=== PATIENT | male | born 1975 | race Caucasian/White ===

== ENCOUNTER 2017-09-10 16:07 | Emergency (ER) | payer MEDICAID, OTHER ==
[~2017-09-10] VITALS: Ht 162.6 cm; Wt 86.2 kg
[~2017-09-10 16:07] MED LIST: IBUPROFEN PO
[2017-09-10] MEDS ORDERED: SULFAMETH/TRIMETH 800/160 MG TABLET PO ONE (17:00)
[2017-09-10] MEDS ORDERED: MORPHINE SULFATE 4 MG/1 ML DISP.SYRIN IM ONE (17:00)
[2017-09-10] MEDS ORDERED: CEPHALEXIN MONOHYDRATE 500 MG CAPSULE PO ONE (17:00)
[2017-09-10] MEDS ORDERED: ONDANSETRON 4 MG/2 ML VIAL IM ONE (17:00)
--- NOTE | 2017-09-10 17:09 | NUR ---
Patient discharged to home in stable conditon. Written and verbal after care instructions given. Patient verbalizes understanding of instructions.
[2017-09-10 17:10] VITALS: BP 129/89
--- NOTE | 2017-09-10 17:10 | NUR ---
Pt left ER W/ steady gait accompained by family.
[2017-09-10] MEDS ORDERED: CEPHALEXIN MONOHYDRATE 500 MG CAPSULE ONE (17:11)
[2017-09-10] MEDS ORDERED: ONDANSETRON 4 MG/2 ML VIAL ONE (17:11)
[2017-09-10] MEDS ORDERED: MORPHINE SULFATE 4 MG/1 ML DISP.SYRIN ONE (17:11)
[2017-09-10] MEDS ORDERED: SULFAMETH/TRIMETH 800/160 MG TABLET ONE (17:11)
== END 2017-09-10 17:11 | disposition home or self-care (01) ==
LOC: ER 16:10
DX: L03.011 Cellulitis of right finger (principal); M48.00 Spinal stenosis, site unspecified; Z87.891 Personal history of nicotine dependence; Z86.73 Personal history of transient ischemic attack (TIA), and cerebral infarction without residual deficits
CPT/HCPCS: 96372 ×2; 99284; A4663; J2270; J2405

== ENCOUNTER 2017-09-28 21:06 | Emergency (ER) | payer OTHER ==
[~2017-09-28] VITALS: Ht 162.6 cm; Wt 86.2 kg
--- NOTE | 2017-09-28 21:11 | NUR ---
PT C/O REINJURY RT INDEX FINGER
--- NOTE | 2017-09-28 21:25 | NUR ---
DR FELIX TO EXAM
--- NOTE | 2017-09-28 21:51 | NUR ---
PT DISCHGED WITH FAMILY RX AND AFTERCARE INSTRUCTIONS REVIEWED
[2017-09-28 21:52] VITALS: BP 142/88
== END 2017-09-28 21:54 | disposition home or self-care (01) ==
LOC: ER 21:07
DX: S60.021A Contusion of right index finger without damage to nail, initial encounter (principal); G89.29 Other chronic pain; L98.9 Disorder of the skin and subcutaneous tissue, unspecified; M48.00 Spinal stenosis, site unspecified; Z86.73 Personal history of transient ischemic attack (TIA), and cerebral infarction without residual deficits; F17.200 Nicotine dependence, unspecified, uncomplicated; X58.XXXA Exposure to other specified factors, initial encounter; Y93.89 Activity, other specified; Y92.89 Other specified places as the place of occurrence of the external cause; Y99.8 Other external cause status
CPT/HCPCS: 29130; 99283; A4663

== ENCOUNTER 2018-01-20 18:11 | Emergency (ER) | payer SELFPAY ==
[~2018-01-20] VITALS: Ht 165.1 cm; Wt 88.5 kg
--- NOTE | 2018-01-20 19:06 | NUR ---
sbar report to nazanin arreola
--- NOTE | 2018-01-20 20:00 | NUR ---
PT D/C HOME WITH RX AND ACI GIVEN.PT VERBALIZED UNDERSTANDING.PT STATES DRIVING SO NO MEDS NOW
== END 2018-01-20 20:02 | disposition home or self-care (01) ==
LOC: ER 18:13
DX: G89.29 Other chronic pain (principal); M54.5 Low back pain; F17.210 Nicotine dependence, cigarettes, uncomplicated; Z86.73 Personal history of transient ischemic attack (TIA), and cerebral infarction without residual deficits; Z79.1 Long term (current) use of non-steroidal anti-inflammatories (NSAID)
CPT/HCPCS: A4663

== ENCOUNTER 2018-10-29 14:17 | Emergency (ER) | payer OTHER ==
[~2018-10-29] VITALS: Ht 167.6 cm; Wt 90.7 kg
[2018-10-29] MEDS ORDERED: HYDROCODONE/APAP 10-325 MG TABLET ONE (15:02)
[2018-10-29] MEDS ORDERED: KETOROLAC TROMETHAMINE 30 MG INJ ONE (15:02)
[2018-10-29] MEDS: HYDROCODONE/APAP 10-325 MG TABLET PO ONE (15:04)
[2018-10-29] MEDS: KETOROLAC TROMETHAMINE 30 MG INJ IM ONE (15:04)
[2018-10-29 15:19] LABS: BASOPHILS # (AUTO) 0.1 K/uL (0.0-8.0); BASOPHILS % (AUTO) 0.9 % (0.0-2.0); EOSINOPHILS # (AUTO) 0.2 K/uL (0.0-0.7); EOSINOPHILS % (AUTO) 2.5 % (0.0-7.0); HEMATOCRIT 42.5 % (36.7-47.1); HEMOGLOBIN 14.6 g/dL (12.5-16.3); LYMPHOCYTES # (AUTO) 2.2 K/uL (20.0-40.0); LYMPHOCYTES % (AUTO) 29.6 % (20.5-51.5); MEAN CORPUSCULAR HEMOGLOBIN 32.6 uug (23.8-33.4); MEAN CORPUSCULAR HGB CONC 34 g/dL (32.5-36.3); MONOCYTES # (AUTO) 0.8 K/uL (2.0-10.0); MONOCYTES % (AUTO) 10.3 % (0.0-11.0); NEUTROPHILS # (AUTO) 4.1 K/uL (1.8-8.9); NEUTROPHILS % (AUTO) 56.7 % (38.5-71.5); PLATELET COUNT (AUTO) 331 K/uL (152-348); RED BLOOD CELL COUNT(AUTO) 4.47 MIL/uL (4.06-5.63); WHITE BLOOD COUNT (AUTO) 7.3 K/uL (3.6-10.2)
[2018-10-29 15:28] LABS: POTASSIUM 4.3 mmol/L (3.5-5.1)
[2018-10-29 15:33] LABS: BILIRUBIN,DIRECT 0.1 mg/dL (0.0-0.2); BILIRUBIN,TOTAL 0.3 mg/dL (0.2-1.0)
[2018-10-29] MEDS ORDERED: IV NORMAL SALINE 250 ML IV ONE (17:21)
[2018-10-29] MEDS ORDERED: IOHEXOL 350 100 ML INFUS..BTL ONE (17:21)
[2018-10-29] MEDS ORDERED: SWABABLE VALVE TRANSFER SET EA MC ONE (17:21)
--- NOTE | 2018-10-29 18:44 | NUR ---
MSE COMPLETED, IV D/C'D INTACT, PT D/C'D HOME, ACI/RX X2 GIVEN. PT AMBULATED W/O DIFF, TOOK ALL BELONGINGS.
[2018-10-29 18:46] VITALS: BP 175/105
== END 2018-10-29 18:47 | disposition home or self-care (01) ==
LOC: ER 14:19
DX: R07.81 Pleurodynia (principal); R91.1 Solitary pulmonary nodule; I73.1 Thromboangiitis obliterans [Buerger's disease]; F17.200 Nicotine dependence, unspecified, uncomplicated; G89.29 Other chronic pain; M54.9 Dorsalgia, unspecified; Z79.1 Long term (current) use of non-steroidal anti-inflammatories (NSAID)
CPT/HCPCS: 36415; 71101; 71275; 80048; 80076; 84484; 85025; 85730; 93005; 96372; 99284; J1885; Q9967; 70030-TC; A4663; J7050

== ENCOUNTER 2019-12-09 14:07 | Emergency (ER) | payer OTHER ==
[~2019-12-09] VITALS: Ht 167.6 cm; Wt 90.7 kg
--- NOTE | 2019-12-09 14:19 | NUR ---
Dr Owens at the bedside for MSE.
[2019-12-09] MEDS ORDERED: MORPHINE SULFATE 2 MG/1 ML DISP.SYRIN IV ONE (14:30)
[2019-12-09 14:40] LABS: BASOPHILS % (AUTO) 0.6 % (0.0-2.0); EOSINOPHILS % (AUTO) 0.3 % (0.0-7.0); HEMATOCRIT 36.1 % (36.7-47.1); HEMOGLOBIN 12.1 g/dL (12.5-16.3); LYMPHOCYTES # (AUTO) 0.5 K/uL (20.0-40.0); LYMPHOCYTES % (AUTO) 8.8 % (20.5-51.5); MEAN CORPUSCULAR HEMOGLOBIN 31.5 uug (23.8-33.4); MEAN CORPUSCULAR HGB CONC 34 g/dL (32.5-36.3); MEAN CORPUSCULAR VOLUME 94.3 fL (73.0-96.2); MONOCYTES # (AUTO) 0.6 K/uL (2.0-10.0); MONOCYTES % (AUTO) 10.2 % (0.0-11.0); NEUTROPHILS # (AUTO) 4.9 K/uL (1.8-8.9); NEUTROPHILS % (AUTO) 80.1 % (38.5-71.5); PLATELET COUNT (AUTO) 281 K/uL (152-348); RED BLOOD CELL COUNT(AUTO) 3.83 MIL/uL (4.06-5.63); WHITE BLOOD COUNT (AUTO) 6.1 K/uL (3.6-10.2)
[2019-12-09 14:46] LABS: CREATININE 1.1 mg/dL (0.6-1.3)
[2019-12-09] MEDS ORDERED: MORPHINE SULFATE 4 MG/1 ML DISP.SYRIN ONE (14:46)
[2019-12-09 14:52] LABS: BILIRUBIN,DIRECT 0.1 mg/dL (0.0-0.2); BILIRUBIN,TOTAL 0.3 mg/dL (0.2-1.0); TOTAL PROTEIN, SERUM 7.5 g/dL (6.4-8.2)
--- NOTE | 2019-12-09 15:46 | NUR ---
Patient discharged to home with in stable conditon, walks with steady gait .IV heploc removed and vital signs assesed. Written and verbal after care instructions given. Patient verbalizes understanding of instructions.
[2019-12-09 15:58] VITALS: BP 125/80
[2019-12-31] MEDS ORDERED: BUPR1PAT TP (10:18)
[2019-12-31] MEDS ORDERED: HYDR-3980 PO (10:18)
[2019-12-31] MEDS ORDERED: INDO-12 PO (10:18)
== END 2019-12-09 15:50 | disposition home or self-care (01) ==
LOC: ER 14:09
DX: R07.89 Other chest pain (principal); F17.200 Nicotine dependence, unspecified, uncomplicated; G89.29 Other chronic pain; M54.9 Dorsalgia, unspecified; Z79.1 Long term (current) use of non-steroidal anti-inflammatories (NSAID)
CPT/HCPCS: 36415; 71101; 80048; 80076; 84484; 85025; 93005; 96374; 99284; J2270; 70030-TC; A4663; J7030

== ENCOUNTER 2019-12-31 10:08 | Emergency (ER) | payer OTHER ==
[~2019-12-31] VITALS: Ht 165.1 cm; Wt 93.0 kg
--- NOTE | 2019-12-31 10:45 | NUR ---
PATIENT IS IN ROOM 5. HE IS SITTING ON THE BED WITH SUNGLASSES ON IN NO DISTRESS. PATIENT WAS SEEN BY MD. DINERO AND FOLLOW UP INSTRUCTIONS GIVEN AND EXPLAINED TO PATIENT WHO STATES HE UNDERSTANDS ALL INSTRUCTIONS.
== END 2019-12-31 10:48 | disposition home or self-care (01) ==
LOC: ER 10:08
DX: F41.9 Anxiety disorder, unspecified (principal); G89.29 Other chronic pain; F17.200 Nicotine dependence, unspecified, uncomplicated; Z60.2 Problems related to living alone; Z79.899 Other long term (current) drug therapy
CPT/HCPCS: A4663

== ENCOUNTER 2021-04-01 20:09 | Emergency (ER) | payer OTHER ==
[~2021-04-01] VITALS: Ht 165.1 cm; Wt 90.7 kg
[~2021-04-01 20:09] MED LIST changes: +BUPR1PAT TP; +HYDR-3980 PO; +INDO-12 PO
[2021-04-01] MEDS ORDERED: IBUPROFEN 600 MG TABLET ONE (20:48)
[2021-04-01] MEDS ORDERED: HYDROCODONE/APAP 5-325MG TABLET ONE (20:49)
[2021-04-01] MEDS ORDERED: TDAP DIPH,PERTUSS,TET VAC/PF 0.5 ML DISP.SYRIN IM ONE (20:49)
[2021-04-01] MEDS: IBUPROFEN 600 MG TABLET PO ONE (20:49)
[2021-04-01] MEDS: HYDROCODONE/APAP 5-325MG TABLET PO ONE (20:50)
[2021-04-01] MEDS: TDAP DIPH,PERTUSS,TET VAC/PF 0.5 ML DISP.SYRIN IM ONE (20:51)
[2021-04-01] MEDS ORDERED: IBUP-1955 PO (21:03)
[2021-04-01] MEDS ORDERED: TRAM50TA2 PO (21:03)
--- NOTE | 2021-04-01 21:25 | NUR ---
Patient discharged to home in stable condition. Written and verbal after care instructions given. Patient verbalizes understanding of instructions. Stressed follow up or return to ER for worsening s/s. Feeling, movement, and warmth in distal portion of injured extremity. Steady gait w/ walker. All belongings with patient.
[2021-04-01 21:26] VITALS: BP 133/80
== END 2021-04-01 21:15 | disposition home or self-care (01) ==
LOC: ER 20:21
DX: S90.31XA Contusion of right foot, initial encounter (principal); S91.111A Laceration without foreign body of right great toe without damage to nail, initial encounter; W22.8XXA Striking against or struck by other objects, initial encounter; Y92.89 Other specified places as the place of occurrence of the external cause; I73.1 Thromboangiitis obliterans [Buerger's disease]; Z79.899 Other long term (current) drug therapy; F17.200 Nicotine dependence, unspecified, uncomplicated; G89.29 Other chronic pain; Z86.73 Personal history of transient ischemic attack (TIA), and cerebral infarction without residual deficits
CPT/HCPCS: 73630; 90715; A4217; A4663

== ENCOUNTER 2021-08-17 17:13 | Emergency (ER) | payer OTHER ==
[~2021-08-17] VITALS: Ht 165.1 cm; Wt 90.7 kg
[~2021-08-17 17:13] MED LIST changes: +IBUP-1955 PO; +TRAM50TA2 PO
[2021-08-17] MEDS ORDERED: MORPHINE SULFATE 4 MG/1 ML DISP.SYRIN IM ONE (17:45)
[2021-08-17] MEDS ORDERED: ONDANSETRON 4 MG/2 ML VIAL IM ONE (17:45)
[2021-08-17] MEDS ORDERED: MORPHINE SULFATE 4 MG/1 ML DISP.SYRIN ONE (18:22)
[2021-08-17] MEDS ORDERED: ONDANSETRON 4 MG/2 ML VIAL ONE (18:22)
--- NOTE | 2021-08-17 19:09 | NUR ---
Assumed care of patient from day shift RN Tannai.
--- NOTE | 2021-08-17 19:13 | NUR ---
Dr. Sidhu was at bedside speaking to the patient and patient became angry screaming and yelling and eloped after.
== END 2021-08-17 19:13 | disposition left against medical advice (07) ==
LOC: ER 17:13
DX: R07.81 Pleurodynia (principal); Z86.73 Personal history of transient ischemic attack (TIA), and cerebral infarction without residual deficits; G89.29 Other chronic pain; I73.1 Thromboangiitis obliterans [Buerger's disease]; F41.9 Anxiety disorder, unspecified; Z79.899 Other long term (current) drug therapy; Z91.81 History of falling
CPT/HCPCS: 71101; 96372; 99283; J2270; J2405; 11740; A4663

== ENCOUNTER 2024-07-03 11:29 | Emergency (ER) | payer OTHER ==
[~2024-07-03] VITALS: Ht 165.1 cm; Wt 102.1 kg
[2024-07-03 11:31] VITALS: O2SAT 95
== END 2024-07-03 15:46 | disposition left against medical advice (07) ==
LOC: ER 11:29
DX: M25.531 Pain in right wrist (principal); Z53.21 Procedure and treatment not carried out due to patient leaving prior to being seen by health care provider
CPT/HCPCS: A4606; A4663

== ENCOUNTER 2024-07-07 00:34 | Emergency (ER) | payer OTHER ==
[~2024-07-07] VITALS: Ht 165.1 cm; Wt 102.1 kg
[2024-07-07 01:11] VITALS: BP 123/75; O2SAT 96
== END 2024-07-07 01:20 | disposition home or self-care (01) ==
LOC: ER 00:36
DX: S66.811A Strain of other specified muscles, fascia and tendons at wrist and hand level, right hand, initial encounter (principal); Z86.73 Personal history of transient ischemic attack (TIA), and cerebral infarction without residual deficits; F17.200 Nicotine dependence, unspecified, uncomplicated; Z98.890 Other specified postprocedural states; Z79.1 Long term (current) use of non-steroidal anti-inflammatories (NSAID); Z79.899 Other long term (current) drug therapy; Z79.891 Long term (current) use of opiate analgesic; W22.8XXA Striking against or struck by other objects, initial encounter; Y93.89 Activity, other specified; Y92.89 Other specified places as the place of occurrence of the external cause; Y99.8 Other external cause status
CPT/HCPCS: 73100; 73120; A4606; A4663

== ENCOUNTER 2024-09-02 14:53 | Emergency (ER) | payer OTHER ==
[~2024-09-02] VITALS: Ht 1676.4 cm; Wt 136.1 kg
[2024-09-02] MEDS ORDERED: IBUPROFEN 600 MG TABLET ONE (17:43)
[2024-09-02] MEDS: IBUPROFEN 800 MG TABLET PO ONE (17:47)
[2024-09-02] MEDS ORDERED: OXYC-133 PO (18:22)
[2024-09-02 19:43] VITALS: BP 133/80; TEMP 98; O2SAT 98
== END 2024-09-02 19:43 | disposition home or self-care (01) ==
LOC: ER 14:53
DX: S76.191A Other specified injury of right quadriceps muscle, fascia and tendon, initial encounter (principal); F17.200 Nicotine dependence, unspecified, uncomplicated; Z86.73 Personal history of transient ischemic attack (TIA), and cerebral infarction without residual deficits; Z79.1 Long term (current) use of non-steroidal anti-inflammatories (NSAID); Z88.7 Allergy status to serum and vaccine; X58.XXXA Exposure to other specified factors, initial encounter; Y93.89 Activity, other specified; Y92.89 Other specified places as the place of occurrence of the external cause; Y99.8 Other external cause status
CPT/HCPCS: A4606; A4663

== ENCOUNTER 2025-02-21 22:48 | Emergency (ER) | payer OTHER ==
[~2025-02-21] VITALS: Ht 165.1 cm; Wt 127.0 kg
[~2025-02-21 22:48] MED LIST changes: -BUPR1PAT TP; -HYDR-3980 PO; -IBUP-1955 PO; -IBUPROFEN PO; -INDO-12 PO; +OXYC-133 PO; -TRAM50TA2 PO
[2025-02-21 23:49] VITALS: BP 136/93; O2SAT 95
== END 2025-02-21 23:50 | disposition home or self-care (01) ==
LOC: ER 22:51
DX: N49.2 Inflammatory disorders of scrotum (principal); F17.200 Nicotine dependence, unspecified, uncomplicated; F41.9 Anxiety disorder, unspecified; Z86.73 Personal history of transient ischemic attack (TIA), and cerebral infarction without residual deficits; Z88.7 Allergy status to serum and vaccine; Z87.39 Personal history of other diseases of the musculoskeletal system and connective tissue
CPT/HCPCS: A4606; A4663